=== PATIENT | male | born 1955 | race Caucasian/White ===

== ENCOUNTER 2016-05-09 11:11 | Observation (INO) | payer MEDICARE, OTHER ==
[~2016-05-09] VITALS: Ht 180.3 cm; Wt 102.1 kg
[2016-05-09 12:20] LABS: MEAN CORPUSCULAR HGB CONC 35.2 g/dL (31.0-37.0); MEAN CORPUSCULAR VOLUME 95 FL (80-100); MEAN PLATELET VOLUME 9.9 FL (6.0-9.5); PLATELET COUNT 190 10^3uL (150-450); WHITE BLOOD COUNT 23.34 10^3uL (4.0-11.0)
[2016-05-09 12:23] LABS: MEAN CORPUSCULAR HEMOGLOBIN 33.3 PG (26.0-34.0)
[2016-05-09 12:30] LABS: BAND NEUTROPHILS % 0 % (0-6); EOSINOPHILS % 1 % (0-4); LYMPHOCYTES # 0.9 #; MONOCYTES # 0.9 #; MONOCYTES % 4 % (3-11); RBC MORPH NORMAL (NORMAL); SEGMENTED NEUTROPHILS % 91 % (51-67); TOTAL CELLS COUNTED 100
[2016-05-09 12:37] LABS: ALBUMIN 3.9 g/dL (3.4-5.0); ANION GAP 13.4 MEQ/L (3-15); CALCULATED IONIZED CALCIUM 4.2 mg/dL (3.8-4.6); TOTAL PROTEIN 6.8 g/dL (6.4-8.5)
--- NOTE | 2016-05-09 12:52 | NUR ---
pt given lunch tray, in room with
[2016-05-09 13:13] LABS: BILIRUBIN,URINE Negative (Negative); COLOR,URINE Yellow; GLUCOSE, URINE (UA) Trace (Negative); LEUKOCYTE ESTERASE ,URINE Negative (Negative); UROBILINOGEN,URINE 0.2 mg/dL (0.2-1.0)
[2016-05-09 13:14] LABS: CLARITY,URINE Slightly Cloudy
[2016-05-09 13:18] LABS: URINE CENTRIFUGED VOLUME 12 mL
[2016-05-09 13:20] LABS: AMORPHOUS SEDIMENT,UR 2+ /HPF
[2016-05-09] MEDS ORDERED: ASPIRIN 81 MG CHEW (CHILDREN'S ASA) PO ONE (14:10)
--- NOTE | 2016-05-09 14:38 | NUR ---
REPORT GIVEN TO [facility]
[2016-05-09 14:55] VITALS: BP 109/65
--- NOTE | 2016-05-09 14:55 | NUR ---
Pt admitted to [facility] from ED via w/c accompanied by Christelle and Iain Stephenson. Skin warm, dry, intact. Resprs nonlabored, even on RA. Pt denies feeling dizzy or lightheaded. Endorses pain in his back, L hip, and legs. States the pain in his back and hip is not new but that the pain in his legs is from the fall this am. States he takes Ibuprofen for the pain at home, but the Dr just yesterday told him to switch to Tylenol. States Tylenol does not work as well. SL to R FA intact. Pt's speech is somewhat garbled but intelligible, states his tongue feels thick. AAOx4, but somewhat of a poor historian. See admission database for additional assessment info.
[2016-05-09 15:00] VITALS: BP 109/65
[2016-05-09] MEDS ORDERED: ONDANSETRON 2 MG/ML (Z0FRAN) 2 ML VIAL IV PRN (15:30)
[2016-05-09] MEDS ORDERED: NS FLUSH 3 ML PRN IV (15:45)
[2016-05-09] MEDS ORDERED: NS FLUSH 10 ML PRN IV (15:45)
[2016-05-09 15:50] VITALS: BP 109/65
[2016-05-09 16:10] LABS: AMPHETAMINE SCREEN, URINE Negative (Negative); CANNABINOID SCREEN, URINE Negative (Negative); METHAMPHETAMINE SCREEN URINE S NEGATIVE (NEGATIVE); OPIATE SCREEN URINE Negative (Negative); PROPOXYPHENE STAT NEGATIVE (NEGATIVE)
[2016-05-09] MEDS: ACETAMINOPHEN 325 MG TAB (TYLENOL) PO PRN (16:26)
[2016-05-09 16:40] VITALS: BP 109/65
--- NOTE | 2016-05-09 18:02 | NUR ---
Pt rests in bed, denies needs. IVF infusing with no difficulty. Yellow gown and socks on, yellow sign up outside of door. Informed pt of importance of calling for assistance prior to getting up. Bed alarm on for pt's safety. Call light within reach. Denies needs.
--- NOTE | 2016-05-09 18:03 | NUR ---
MED REC COMPLETE--current med list obtained from external med history application and lists provided from [facility] and patient's PCP (Dr. Huber).
[2016-05-09] MEDS ORDERED: clonazePAM 0.5 MG (KlonoPIN) TAB PO PRN (18:10)
[2016-05-09 19:49] VITALS: BP 104/66
[2016-05-09] MEDS: IBUPROFEN 400 MG (MOTRIN) TABLET PO PRN (20:17)
[2016-05-09] MEDS: risperiDONE 1 MG (RisperDAL) TAB PO SCH (20:17)
--- NOTE | 2016-05-09 20:42 | NUR ---
Pt does not have home CPAP here tonight, He has no needs at this time.
[2016-05-09] MEDS ORDERED: BENZTROPINE MESYLATE 1 MG (COGENTIN) TAB PO SCH (21:00)
[2016-05-09] MEDS ORDERED: GABAPENTIN 600 MG (NEURONTIN) TAB PO SCH (21:00)
[2016-05-09] MEDS ORDERED: traZODone 100 MG (DESYREL) TABLET PO SCH (21:00)
[2016-05-09 22:58] VITALS: BP 104/66
[2016-05-10] VITALS (7 sets, daily range): BP systolic 97–132; BP diastolic 62–79
--- NOTE | 2016-05-10 | NUR ---
Patient's orthostatic vitals: Lyin/65, Pulse 72 Sittin/62 Pulse 75 Standin/67 Pulse 76
[2016-05-10] MEDS: IBUPROFEN 400 MG (MOTRIN) TABLET PO PRN ×2 (04:15→10:53)
[2016-05-10 06:03] LABS: BASOPHILS % (AUTO) 0 % (0-2); EOSINOPHILS # (AUTO) 0.2 10^3uL; EOSINOPHILS % (AUTO) 2 % (0-4); LYMPHOCYTES # (AUTO) 2.3 X10^3; MEAN CORPUSCULAR HGB CONC 35.2 g/dL (31.0-37.0); MEAN CORPUSCULAR VOLUME 96 FL (80-100); MEAN PLATELET VOLUME 9.8 FL (6.0-9.5); MONOCYTES % (AUTO) 7 % (3-11); NEUTROPHILS # (AUTO) 10.5 X10^3; NEUTROPHILS % (AUTO) 75 % (51-67); PLATELET COUNT 173 10^3uL (150-450); WHITE BLOOD COUNT 14.07 10^3uL (4.0-11.0)
[2016-05-10 06:08] LABS: MEAN CORPUSCULAR HEMOGLOBIN 33.6 PG (26.0-34.0)
--- NOTE | 2016-05-10 06:24 | NUR ---
Patient rests in bed without needs. Continues to report leg pain, ibuprofen helps this somewhat. Utilizes urinal in bed. No needs at this time.
[2016-05-10 06:53] LABS: ALBUMIN 3.3 g/dL (3.4-5.0); ANION GAP 10.4 MEQ/L (3-15); CALCULATED IONIZED CALCIUM 4.3 mg/dL (3.8-4.6)
[2016-05-10] MEDS ORDERED: PANTOPRAZOLE 40 MG (PROTONIX) TAB PO SCH (07:00)
--- NOTE | 2016-05-10 08:03 | NUR ---
NUTRITION ASSESSMENT Level 1 Patient: Juni Kidd Age/Sex: 61/M Date Screened: 05-10-16 Weight: 224.6#/102.1 kg Height: 71 inches Primary Diagnosis: syncope Diet Order: regular Relevant labs: glucose 124 Food allergies: N Nutrition Assessment Criteria Age over 80: N Body Mass Index (BMI) under 19: N Admission Screening Indicates Risk? N Moderate/High Risk Diagnosis: N TPN or PPN: N NPO or clear liquid diet: N Serum Glucose <70 or >180: N Hgb A1c >6.7: N/A Total: 0 points Risk Screen: _X_ Patient at low nutritional risk based on available data; reevaluate in 5-7 days __ Patient at moderate nutritional risk based on available data; reevaluate in 3-5 days __ Patient at high nutritional risk; complete Nutrition Assessment within 48 hours of admission. Comments: Denied weight changes, GI concerns. Eating 50% so far; will reassess as documented above.
[2016-05-10] MEDS ORDERED: NS FLUSH 3 ML DAILY IV SCH (09:00)
[2016-05-10] MEDS ORDERED: ALLOPURINOL 300 MG (ZYLOPRIM) TAB PO SCH (09:00)
[2016-05-10] MEDS ORDERED: FLUOXETINE 10 MG PO SCH (09:00)
[2016-05-10] MEDS ORDERED: GABAPENTIN 600 MG (NEURONTIN) TAB PO SCH (09:00)
[2016-05-10] MEDS ORDERED: SERTRALINE 100 MG (ZOLOFT) TABLET PO SCH (09:00)
[2016-05-10] MEDS: risperiDONE 1 MG (RisperDAL) TAB PO SCH (09:03)
[2016-05-10] MEDS: ACETAMINOPHEN 325 MG TAB (TYLENOL) PO PRN (09:09)
--- NOTE | 2016-05-10 10:58 | NUR ---
Discharge instructions reviewed with patient and , both demonstrate understanding. SL removed with catheter tip intact. No redness or edema noted. Belongings and DC packet sent with patient. Pt dismissed to private vehicle accompanied by Iain Benjamin. Skin warm, dry, intact. Resprs nonlabored, even on RA.
== END 2016-05-10 10:57 | disposition home or self-care (01) ==
LOC: EDUNIT# 11:11 → ED 11:13 → MED/SURG 14:20
PROVIDERS: ADMIT Family Medicine; ATTEND Family Medicine
DX: R55 Syncope and collapse (principal); I95.9 Hypotension, unspecified; E86.0 Dehydration; D72.829 Elevated white blood cell count, unspecified; R47.9 Unspecified speech disturbances; R41.82 Altered mental status, unspecified; E11.9 Type 2 diabetes mellitus without complications; I10 Essential (primary) hypertension; E78.5 Hyperlipidemia, unspecified; F31.9 Bipolar disorder, unspecified; M79.605 Pain in left leg; M79.604 Pain in right leg; Z91.81 History of falling; F17.210 Nicotine dependence, cigarettes, uncomplicated
CPT/HCPCS: 36415; 70450; 71010; 73562; 73590; 80053; 80307; 81003; 81015; 84443; 84484; 85025; 86140; 87040; 87486; 87581; 87633; 87798; 93005; 93306; 93880; 96360; 99218; 99285; J7030; 93010; 96361

== ENCOUNTER → 2016-05-09 | Outpatient (CLI) | payer MEDICARE, OTHER | LOC: EMS 11:00 | PROVIDERS: ATTEND Emergency Medicine | DX: M54.5 Low back pain (principal); W19.XXXA Unspecified fall, initial encounter; R10.2 Pelvic and perineal pain ==

== ENCOUNTER → 2016-05-11 | Outpatient (CLI) | payer MEDICARE, OTHER | LOC: RAD 09:57 | PROVIDERS: ATTEND Nurse Practitioner | DX: R55 Syncope and collapse (principal); R41.82 Altered mental status, unspecified; J32.2 Chronic ethmoidal sinusitis | CPT/HCPCS: 70551 ==

== ENCOUNTER → 2016-05-18 | Outpatient (CLI) | payer MEDICARE | LOC: RAD 07:38 | PROVIDERS: ATTEND Family Medicine | DX: S89.91XA Unspecified injury of right lower leg, initial encounter (principal); M25.461 Effusion, right knee; M71.21 Synovial cyst of popliteal space [Baker], right knee; S82.52XA Displaced fracture of medial malleolus of left tibia, initial encounter for closed fracture; X58.XXXA Exposure to other specified factors, initial encounter | CPT/HCPCS: 73721 ==

== ENCOUNTER → 2016-05-19 | Outpatient (CLI) | payer MEDICARE ==
[~2016-05-19] MED LIST: methylPREDNISolone 80 MG/ML (DEPO MEDROL) VIAL IM ONE
== END ==
LOC: PMC 14:55
PROVIDERS: ATTEND Family Medicine
DX: M48.07 Spinal stenosis, lumbosacral region (principal); E11.9 Type 2 diabetes mellitus without complications; I10 Essential (primary) hypertension; D64.9 Anemia, unspecified
CPT/HCPCS: 62322; J1040

== ENCOUNTER → 2016-06-16 | Outpatient (CLI) | payer MEDICARE ==
[~2016-06-16] MED LIST changes: +ALLO300T2 PO; +ATOR40TA59 PO; +BNZT1T PO; +CARB200T PO; +CETI10TA20 PO; +CHOL10002 PO; +CLON1TAB3 PO; +DIPH25TA PO; +DIVA250T PO; +FLUO10TA9 PO; +GABA100C PO; +GBPN300C PO; +LSNP10T PO; +LSNP20T PO; +MTP25TSR PO; +MULT-954 PO; +OMEP10CA4 PO; +OMEP40CA36 PO; +PANT40TA3 PO; +RISP1TAB3 PO; +ROPIVACAINE 1% 10 MG/ML (NAROPIN) 10 ML AMPUL ONE; +SERT100T8 PO; +SIMV40TA2 PO; +SODIUM CHLORIDE VIAL (PF) 10 ML IV ONE; +TRAZ100T92 PO; +VARE1TAB21 PO
--- NOTE | 2016-06-19 09:33 | PAIN MANAGEMENT ---
Date of note: 06/16/2016 Procedure: Caudal steroid injection This is a 61-year-old patient of Dr. Stone Huber. The patient presents with tremendous improvement of his radicular symptoms at L5-S1. However, he is complaining of pain in the back of his legs from his lumbosacral stenosis in the dermatome level of S2-S1. Informed consent was achieved for a caudal steroid injection. Orders for procedure verified. Patient denies any bleeding tendencies. After informed consent obtained, the patient was positioned for the caudal injection. Landmarks identified. The site was prepped and draped using aseptic technique. The skin and overlying tissues were localized with a 3 mL of Preservative-Free 1% lidocaine using a 1.5-inch 27-gauge needle. A 21-gauge 2-inch needle was then inserted to the caudal space via the sacral hiatus. No blood, cerebral spinal fluid, pain, or paresthesia was noted on entry. A 10 mL solution of Depo-Medrol 80 mg and ropivacaine 0.02% with mg was injected slowly without mass volume effect. Negative aspiration every 2 mL injected. Patient was placed supine for 10 minutes prior to being released with proper leg strength and vitals. Pre- and post procedure vital signs stable. Instruction on followup contact and care provided to the patient.
== END ==
LOC: PMC 12:57
PROVIDERS: ATTEND Family Medicine
DX: M48.07 Spinal stenosis, lumbosacral region (principal)
CPT/HCPCS: 62322; J1040; J2795; J7050

== ENCOUNTER → 2016-07-06 | Outpatient (CLI) | payer MEDICARE ==
--- NOTE | 2016-07-07 09:05 | PAIN MANAGEMENT ---
Date of note: 07/06/2016 Procedure: Caudal epidural steroid injection Total fluoroscopic exposure time: 21 seconds This is a 61-year-old male patient under the care of Dr. Stone Huber. The patient is not new to our services. He has received epidural steroid injections in the past by Abel Ruiz, the most recent being approximately 2 to 3 weeks ago. He came in complaining of lumbosacral radiculopathy in his hips following S1-S2 dermatome levels. He got great results with his caudal epidural. He states he is probably 40 to 50% better. States he wanted to come back in and get an update injection. The patient's pain is not changed. It is still following the S1-S2 dermatome levels. Based on this we decided to proceed forward with a caudal epidural steroid injection. Informed consent was obtained and the patient was taken to the operating room for the use of fluoroscopic guidance for needle tip placement. Orders for procedure verified. Patient denies any bleeding tendencies. After informed consent obtained, the patient was positioned for the caudal epidural steroid injection. Landmarks identified. The site was prepped and draped using aseptic technique. The skin and overlying tissues were localized with a 3 mL of Preservative-Free 1% lidocaine using a 1.5-inch 27-gauge needle. A 21-gauge 2-inch needle was then inserted to the caudal space via the sacral hiatus. No blood, cerebral spinal fluid, pain, or paresthesia was noted on entry. Omnipaque 240 for a total of 0.25 mL was injected after needle placement varying needle tip placement along with fluoroscopy. Depo-Medrol 80 mg and ropivacaine 0.2% in normal saline for a total of 10 mL was injected. The needle was then removed and he was then turned to the sitting position where he remained for approximately 10 minutes. He was able to stand and walk back to ASC under his own leg strength. At that point in time vitals were taken and he is released with vital signs stable and faculties intact. He is asked to follow up with me via my cellphone in approximately 3 days. The patient states he understands these discharge instructions and I will follow him from there.
== END ==
LOC: PMC 14:27
PROVIDERS: ATTEND Family Medicine
DX: M54.17 Radiculopathy, lumbosacral region (principal)
CPT/HCPCS: 62323; J1040; J2795; J7050

== ENCOUNTER → 2016-07-24 | Outpatient (CLI) | payer MEDICARE ==
[~2016-07-24] MED LIST changes: -ROPIVACAINE 1% 10 MG/ML (NAROPIN) 10 ML AMPUL ONE; -SODIUM CHLORIDE VIAL (PF) 10 ML IV ONE; -methylPREDNISolone 80 MG/ML (DEPO MEDROL) VIAL IM ONE
[2016-07-24 14:15] LABS: BASOPHILS % (AUTO) 0 % (0-2); EOSINOPHILS # (AUTO) 0.1 10^3uL; EOSINOPHILS % (AUTO) 1 % (0-4); LYMPHOCYTES # (AUTO) 3.2 X10^3; MEAN CORPUSCULAR HEMOGLOBIN 32.8 PG (26.0-34.0); MEAN CORPUSCULAR HGB CONC 34.1 g/dL (31.0-37.0); MEAN CORPUSCULAR VOLUME 96 FL (80-100); MEAN PLATELET VOLUME 9.6 FL (6.0-9.5); MONOCYTES # (AUTO) 0.7 X10^3; MONOCYTES % (AUTO) 6 % (3-11); NEUTROPHILS # (AUTO) 8.3 X10^3; NEUTROPHILS % (AUTO) 67 % (51-67); PLATELET COUNT 242 10^3uL (150-450); WHITE BLOOD COUNT 12.37 10^3uL (4.0-11.0)
[2016-07-24 15:00] LABS: ALBUMIN 4.4 g/dL (3.4-5.0); ANION GAP 15.3 MEQ/L (3-15); TOTAL PROTEIN 7.7 g/dL (6.4-8.5)
[2016-07-26 18:18] LABS: KAPPA LIGHT CHAINS SERUM 3.59 mg/dL; LAMBDA LIGHT CHAINS SERUM 1.51 mg/dL (())
== END ==
LOC: LAB 13:57
PROVIDERS: ATTEND Internal Medicine Hematology & Oncology
DX: D53.9 Nutritional anemia, unspecified (principal)
CPT/HCPCS: 36415; 80053; 83883; 85025